=== PATIENT | female | born 1975 | race Caucasian/White ===

== ENCOUNTER 2020-12-13 12:08 | Day surgery (SDC) | payer OTHER ==
[~2020-12-13] VITALS: Ht 165.1 cm; Wt 113.4 kg
--- NOTE | ~2020-12-13 | O ---
[facility] [place] [address] OPERATIVE REPORT Name: COURTNEY GRAFF Room #: 150-1 [facility]..#: [id number] Admission: 12/13/20 Attend Phys: Luis Miguel Mckeon MD Discharge: Date of : 71 Report #: [id number] THIS REPORT FOR: cc: Jeff Carr Jayme DO Kneidel, Matthew T. MD ~ DATE OF SERVICE: 12/13/2020 PREOPERATIVE DIAGNOSIS: Right hallux rigidus. POSTOPERATIVE DIAGNOSIS: Right hallux rigidus. PROCEDURE: Right great toe cheilectomy. SURGEON: Luis Miguel Mckeon MD FLUOROSCOPE OPERATOR: None. ANESTHESIA: General. ESTIMATED BLOOD LOSS: Minimal. DRAINS: No drains. TOURNIQUET TIME: 20 minutes. DESCRIPTION OF PROCEDURE: The patient was brought to the operating room where she was placed under general anesthesia. Once under adequate general anesthesia, her right lower extremity was prepped and draped in a sterile manner. The extremity was elevated, exsanguinated, and tourniquet placed at 300 mmHg. A dorsal incision over the first metatarsophalangeal joint was made. This was dissected down through the soft tissue to the joint capsule, which was incised medially, sharply exposing the dorsal joint with a 15 blade. The large dorsal osteophyte was then resected utilizing a sagittal saw. The edges of the joint were debrided as well. The toe was able to then be dorsiflexed to 90 degrees easily. The base of the proximal phalanx as well was debrided with a rongeur. The wound was irrigated copiously and closed with a 0 Vicryl in the capsular layer, 2-0 Vicryl in subcutaneous tissues and 3-0 nylon was used for the skin. The wound was dressed with Xeroform, 4 x 4's, and a sterile soft compressive dressing was placed. Tourniquet was let down at 20 minutes. Toes were pink and warm with good capillary refill. There were no complications from [address] [address] OPERATIVE REPORT Name: COURTNEY GRAFF Room #: 150-1 [facility]..#: [id number] Admission: 12/13/20 Attend Phys: Luis Miguel Mckeon MD Discharge: Date of : 71 Report #: [id number] the procedure. The patient tolerated the procedure well and was to the recovery room without incident. By: [id number] Luis Miguel Mckeon MD /nt
[~2020-12-13 12:08] MED LIST: ARIPIPRAZOLE2 MG PO; BUSPIRONE HCL15 MG PO; ESCITALOPRAM OX20 MG PO; IRON325 M1 PO; MILI 0.25-0.031 EACH PO; MULTI VITAMIN1 EACH PO
[2020-12-13 13:39] VITALS: BP 138/71
[2020-12-13] MEDS ORDERED: PERCOCET 7.5-31 EAC1 PO (15:13)
[2020-12-13 15:59] VITALS: BP 138/71
== END 2020-12-13 17:20 | disposition home or self-care (01) ==
LOC: OR 12:08 → TBA 12:21 → OR 14:38
PROVIDERS: ATTEND Orthopaedic Surgery Foot and Ankle Surgery
DX: M20.21 Hallux rigidus, right foot (principal); F32.9 Major depressive disorder, single episode, unspecified; F41.9 Anxiety disorder, unspecified; Z98.890 Other specified postprocedural states; Z79.899 Other long term (current) drug therapy; Z20.822 Contact with and (suspected) exposure to COVID-19
CPT/HCPCS: 50010; 50101; 50386; 50951; 51412; 56524; 56527; 57091; 57179; 62110; 62900; 70005

== ENCOUNTER 2020-12-19 17:31 | Emergency (ER) | payer OTHER ==
[~2020-12-19] VITALS: Ht 165.1 cm; Wt 113.4 kg
[~2020-12-19 17:31] MED LIST changes: +PERCOCET 7.5-31 EAC1 PO
[2020-12-19 18:02] LABS: ABSOLUTE NEUTROPHILS 5.8 thou/uL (1.4-8.2); BASOPHILS 0.8 % (0.0-2.0); EOSINOPHILS 4.6 % (0.0-3.0); HEMATOCRIT 42.1 % (37.0-47.0); HEMOGLOBIN 13.9 gm/dL (12.0-15.0); LYMPHOCYTES 24.2 % (24.0-44.0); MCH 31.2 pg (26.0-34.0); MCV 94.6 fL (80.0-100.0); MONOCYTES 9.6 % (1.0-8.0); PLATELET COUNT 271 thou/uL (150-400); POLYS 60.8 % (36.0-66.0); RBC 4.45 mil/uL (4.20-5.00); RDW 12.8 % (10.5-14.5); WBC 9.6 thou/uL (4.0-11.0)
[2020-12-19 18:10] LABS: CALCIUM 8.7 mg/dL (8.5-10.1); CREATININE 1.3 mg/dL (0.6-1.0)
[2020-12-19 18:14] LABS: APTT 28.5 Seconds (24.5-32.8); INR 0.9; PROTIME 9.9 Seconds (10.5-12.1)
[2020-12-19 18:16] LABS: ALBUMIN 3.4 g/dL (3.4-5.0); TOTAL BILIRUBIN 0.1 mg/dL (0.2-1.0); TOTAL PROTEIN 7.6 g/dL (6.4-8.2)
[2020-12-19] MEDS ORDERED: NORCO5 PO (18:59)
[2020-12-19] MEDS ORDERED: ELIQUIS5 M1 PO (18:59)
[2020-12-19 19:18] VITALS: BP 150/84
== END 2020-12-19 19:19 | disposition home or self-care (01) ==
LOC: ER 17:31
PROVIDERS: Physician Assistant
DX: I82.401 Acute embolism and thrombosis of unspecified deep veins of right lower extremity (principal); F32.9 Major depressive disorder, single episode, unspecified; Z90.49 Acquired absence of other specified parts of digestive tract; Z79.899 Other long term (current) drug therapy